=== PATIENT | male | born 2000 | race Caucasian/White ===

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

== ENCOUNTER 2022-02-09 07:27 | Emergency (ER) | payer OTHER ==
[~2022-02-09] VITALS: Ht 180.3 cm; Wt 54.4 kg
[2022-02-09] MEDS ORDERED: CEPHALEXIN500 M1 PO (08:17)
== END 2022-02-09 08:51 | disposition home or self-care (01) ==
LOC: ED 07:27
DX: S61.012A Laceration without foreign body of left thumb without damage to nail, initial encounter (principal); W26.0XXA Contact with knife, initial encounter; Y99.0 Civilian activity done for income or pay
CPT/HCPCS: 12002; 99282-25

== ENCOUNTER 2024-02-09 17:47 | Emergency (ER) | payer OTHER ==
[~2024-02-09] VITALS: Ht 180.3 cm; Wt 61.2 kg
[~2024-02-09 17:47] MED LIST changes: +CEPHALEXIN500 M1 PO
[2024-02-09] MEDS ORDERED: AMITRIPTYLINE H50 MG PO (20:33)
[2024-02-09 21:57] VITALS: BP 126/80
== END 2024-02-09 21:56 | disposition home or self-care (01) ==
LOC: ED 17:47
DX: R04.0 Epistaxis (principal); Z79.899 Other long term (current) drug therapy
CPT/HCPCS: 99283